=== PATIENT | male | born 1995 | race African-American/Black ===

== ENCOUNTER 2018-09-18 15:15 | Emergency (ER) | payer MEDICAID ==
[~2018-09-18] VITALS: Ht 175.3 cm; Wt 68.0 kg
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
[2018-09-18] MEDS ORDERED: KETOROLAC TROMETHAMINE 60 MG INJ IM ONE ×2 (18:40→18:45)
--- NOTE | 2018-09-18 19:02 | NUR ---
SHIFT REPORT GIVEN TO AREN Rubin RN.
--- NOTE | 2018-09-18 19:15 | NUR ---
Patient in room sitting on gurny interacting well with friend and staff member. No distress noted
--- NOTE | 2018-09-18 19:23 | NUR ---
Patient discharged to home in stable conditon with friend taking patient home. Written and verbal after care instructions given. Patient verbalizes understanding of instructions. Walked out of ER with no distress noted.
[2018-09-18 19:25] VITALS: BP 110/77
== END 2018-09-18 19:35 | disposition home or self-care (01) ==
LOC: ER 15:19
DX: S13.4XXA Sprain of ligaments of cervical spine, initial encounter (principal); S23.3XXA Sprain of ligaments of thoracic spine, initial encounter; V89.2XXA Person injured in unspecified motor-vehicle accident, traffic, initial encounter; Y93.89 Activity, other specified; Y92.89 Other specified places as the place of occurrence of the external cause; Y99.8 Other external cause status
CPT/HCPCS: 70450; 96372; 99284; J1885; A4663